=== PATIENT | male | born 1990 | race Caucasian/White ===

== ENCOUNTER 2022-09-15 18:45 | Emergency (ER) | payer MEDICARE ==
[~2022-09-15] VITALS: Ht 180.3 cm; Wt 71.2 kg
[2022-09-15 18:46] VITALS: BP 120/74
[2022-09-15] MEDS ORDERED: LEVO112T2 PO (19:05)
[2022-09-15] MEDS ORDERED: SPIR100T3 PO (19:05)
[2022-09-15] MEDS ORDERED: SERT25TA85 PO (19:05)
[2022-09-15] MEDS ORDERED: HYDR-643 PO (19:05)
[2022-09-15] MEDS ORDERED: ESTR1TAB PO (19:05)
[2022-09-15] MEDS ORDERED: PROG1CAP8 PO (19:05)
[2022-09-15 20:48] LABS: HEMATOCRIT 37.4 % (42.0-52.0); HEMOGLOBIN 12.8 g/dl (13.5-17.5); MEAN CORPUSCULAR HEMOGLOBIN 30.7 pg (27.0-33.0); MEAN CORPUSCULAR HGB CONC 34.2 g/dl (32.0-36.5); MEAN CORPUSCULAR VOLUME 89.7 fl (80.0-96.0); PLATELET COUNT, AUTOMATED 281 10^3/uL (150-450); RED BLOOD COUNT 4.17 10^6/uL (4.30-6.10); WHITE BLOOD COUNT 12.3 10^3/uL (4.0-10.0)
[2022-09-15 21:08] LABS: ETHYL ALCOHOL (ETHANOL) 0.003 % (0.000-0.010)
[2022-09-15 21:10] LABS: ACETAMINOPHEN LEVEL < 2.0 UG/ML (10.0-20.0); ALBUMIN 3.8 G/DL (3.2-5.2); ALKALINE PHOSPHATASE 42 U/L (46-116); ALT/SGPT 18 U/L (7.0-40); AST/SGOT 20 U/L (<34); BILIRUBIN,DIRECT < 0.1 MG/DL (<0.4); BILIRUBIN,TOTAL 0.3 MG/DL (0.3-1.2); BLOOD UREA NITROGEN 18 MG/DL (9-23); CALCIUM LEVEL 9.5 MG/DL (8.5-10.1); CARBON DIOXIDE LEVEL 28 MMOL/L (20-31); CHLORIDE LEVEL 105 MMOL/L (98-107); CREATININE FOR GFR 0.88 MG/DL (0.70-1.30); GLOMERULAR FILTRATION RATE > 60.0 (>60); GLUCOSE, FASTING 96 MG/DL (60-100); POTASSIUM SERUM 4.2 MMOL/L (3.5-5.1); SALICYLATE LEVEL < 3.0 MG/DL (<30); SODIUM LEVEL 139 MMOL/L (136-145); TOTAL PROTEIN 6.6 G/DL (5.7-8.2)
[2022-09-15 21:12] LABS: THYROID STIMULATING HORMONE 2.178 uIU/ML (0.55-4.78)
[2022-09-15 21:19] LABS: AMPHETAMINES LEVEL URINE NEGATIVE (NEGATIVE); BARBITURATES URINE NEGATIVE (NEGATIVE); BENZODIAZEPINES URINE NEGATIVE (NEGATIVE); CANNABINOIDS URINE NEGATIVE (NEGATIVE); COCAINE METABOLITE URINE NEGATIVE (NEGATIVE); METHADONE URINE NEGATIVE (NEGATIVE); OPIATES URINE NEGATIVE (NEGATIVE); PHENCYCLIDINE URINE NEGATIVE (NEGATIVE)
[2022-09-15] MEDS ORDERED: diphenhydrAMINE 50MG/ML VIAL IM ONE (21:20)
[2022-09-15] MEDS ORDERED: MIDAZOLAM INJ 2MG/2ML VIAL IM ONE (21:20)
[2022-09-15] MEDS ORDERED: HALOPERIDOL 5MG/ML 1ML VIAL IM ONE (22:00)
[2022-09-15] MEDS ORDERED: ACETAMINOPHEN TAB 650MG DOSE (2X325MG) PO ONE (23:05)
== END 2022-09-16 00:59 | disposition home or self-care (01) ==
LOC: M ED 18:45
DX: F32.A Depression, unspecified (principal); R45.851 Suicidal ideations; F43.10 Post-traumatic stress disorder, unspecified; F12.10 Cannabis abuse, uncomplicated; F17.200 Nicotine dependence, unspecified, uncomplicated; Z91.010 Allergy to peanuts; Z91.030 Bee allergy status; Z79.818 Long term (current) use of other agents affecting estrogen receptors and estrogen levels; Z79.52 Long term (current) use of systemic steroids; Z79.899 Other long term (current) drug therapy

== ENCOUNTER 2022-10-01 16:04 | Emergency (ER) | payer MEDICARE ==
[~2022-10-01] VITALS: Ht 180.3 cm; Wt 72.3 kg
[~2022-10-01 16:04] MED LIST: ESTR1TAB PO; HYDR-643 PO; LEVO112T2 PO; PROG1CAP8 PO; SERT25TA85 PO; SPIR100T3 PO
[2022-10-01] MEDS ORDERED: ALBU2.5V10 INH (16:13)
[2022-10-01] MEDS ORDERED: BENZONATATE 100MG CAPSULE PO ONE (18:05)
[2022-10-01] MEDS ORDERED: ALBUTEROL 90 MCG/ACT 8GM HFA INHALER INH ONE (18:05)
[2022-10-01] MEDS ORDERED: ONDANSETRON 4MG ORAL DISINTEGRATING TAB PO ONE (18:40)
[2022-10-01] MEDS ORDERED: MUCI600T31 PO (19:19)
[2022-10-01] MEDS ORDERED: VENTAER INH (19:19)
[2022-10-01] MEDS ORDERED: BENZ200C70 PO (19:19)
[2022-10-01 19:44] VITALS: BP 119/78
== END 2022-10-01 19:57 | disposition home or self-care (01) ==
LOC: M ED 16:04
DX: J20.9 Acute bronchitis, unspecified (principal); J06.9 Acute upper respiratory infection, unspecified; Z91.030 Bee allergy status; Z91.010 Allergy to peanuts; Z79.52 Long term (current) use of systemic steroids; Z79.811 Long term (current) use of aromatase inhibitors; Z79.899 Other long term (current) drug therapy